=== PATIENT | female | born 1955 | race African-American/Black ===

== ENCOUNTER 2017-03-06 03:07 | Inpatient (IN) | payer MEDICAID, OTHER ==
[2017-03-06 05:08] LABS: ADD MAN DIFF? NO
[2017-03-06 05:10] LABS: BASOPHILS % 0.6 % (0.0-2.0); EOSINOPHILS # 0.1 10^3/ul (0.0-0.5); EOSINOPHILS % 1.9 % (0.0-7.0); HEMATOCRIT 40.1 % (37.0-47.0); HEMOGLOBIN 13.4 g/dl (12.0-16.0); LYMPHOCYTES # 3.2 10^3/ul (0.8-2.9); MEAN CORPUSCULAR HEMOGLOBIN 30.2 pg (29.0-33.0); MEAN CORPUSCULAR HGB CONC 33.4 g/dl (32.0-37.0); MEAN CORPUSCULAR VOLUME 90.5 fl (82.0-101.0); MEAN PLATELET VOLUME 12.1 fl (7.4-10.4); MONOCYTE # 0.9 10^3/ul (0.3-0.9); MONOCYTES % 12.7 % (0.0-11.0); NEUTROPHIL # 2.5 10^3/ul (1.6-7.5); NEUTROPHILS % 37.5 % (39.0-77.0); PLATELET COUNT 165 10^3/UL (140-415); RED BLOOD COUNT 4.43 10^6/ul (4.20-5.40); RED CELL DISTRIBUTION WIDTH 13.9 % (11.5-14.5)
[2017-03-06 05:10] LABS: WHITE BLOOD COUNT 6.7 10^3/ul (4.8-10.8)
[2017-03-06] MEDS: ASPIRIN 325 MG TAB PO (05:15)
[2017-03-06] MEDS ORDERED: NITROGLYCERIN (SL) 0.4 MG TAB SL (06:30)
[2017-03-06 07:40] LABS: ANION GAP 16 (8-16); BLOOD UREA NITROGEN 10 mg/dl (7-20); CALCIUM 8.9 mg/dl (8.4-10.2); CARBON DIOXIDE 28 mmol/L (21-31); CHLORIDE 103 mmol/L (97-110); CREATININE 0.96 mg/dl (0.44-1.00); GLUCOSE 106 mg/dl (70-220); SODIUM 143 mmol/L (135-144)
[2017-03-06 07:53] LABS: B-TYPE NATRIURETIC PEPTIDE 25 PG/ML (0-125)
[2017-03-06 07:59] LABS: TROPONIN-I 0.147 ng/ml (0.00-0.12)
[2017-03-06] MEDS: NITROGLYCERIN 2% 1 GM OINT PKT TD (08:04)
[2017-03-06] MEDS: ONDANSETRON 4 MG INJ IV ×3 (08:12→16:03)
[2017-03-06] MEDS: morphine 4 MG/ML VIAL IV (08:32)
[2017-03-06 11:58] LABS: CREATINE KINASE 188 IU/L (23-200)
[2017-03-06 12:12] LABS: CK INDEX 0.4; CK-MB 0.68 ng/ml (0.0-2.4); TROPONIN-I 0.119 ng/ml (0.00-0.12)
[2017-03-06 12:31] LABS: ALANINE AMINOTRANSFERASE 43 IU/L (13-69); ALBUMIN 3.9 g/dl (3.3-4.9); ALKALINE PHOSPHATASE 69 IU/L (42-121); ASPARTATE AMINO TRANSFERASE 34 IU/L (15-46); BILIRUBIN,INDIRECT 0.3 mg/dl (0-1.1); BILIRUBIN,TOTAL 0.3 mg/dl (0.2-1.3); MAGNESIUM 1.9 mg/dl (1.7-2.5); TOTAL PROTEIN 7.7 g/dl (6.1-8.1)
[2017-03-06 12:31] LABS: PHOSPHORUS 4.2 mg/dl (2.5-4.9)
[2017-03-06 12:53] LABS: HEMOGLOBIN A1C 6.3 % (0-5.9)
[2017-03-06] MEDS ORDERED: METHOTREXATE 2.5 MG TAB PO (14:00)
[2017-03-06 14:04] LABS: ADD UMIC NO; UR ASCORBIC ACID NEGATIVE (NEGATIVE); UR BILIRUBIN (Dip) NEGATIVE (NEGATIVE); UR BLOOD (Dip) NEGATIVE (NEGATIVE); UR CLARITY CLEAR (CLEAR); UR COLOR YELLOW (YELLOW); UR GLUCOSE (Dip) NEGATIVE (NEGATIVE); UR KETONES (Dip) NEGATIVE (NEGATIVE); UR LEUKOCYTE ESTERASE (Dip) NEGATIVE Leu/ul (NEGATIVE); UR NITRITE (Dip) NEGATIVE (NEGATIVE); UR SPECIFIC GRAVITY (Dip) 1.014 (1.003-1.030); UR TOTAL PROTEIN (Dip) NEGATIVE (NEGATIVE); UR UROBILINOGEN (Dip) NEGATIVE (NEGATIVE)
[2017-03-06] MEDS: ACETAMINOPHEN 325 MG TAB PO ×2 (15:52→18:07)
[2017-03-06] MEDS ORDERED: hydrALAzine 20 MG INJ IV (17:30)
[2017-03-06] MEDS: METHOTREXATE 2.5 MG TAB PO (18:06)
[2017-03-06] MEDS: TRIAMTERENE/HCTZ (37.5-25) CAP PO (18:07)
[2017-03-06] MEDS: FOLIC ACID 1 MG TAB PO (18:07)
[2017-03-06 18:13] LABS: CREATINE KINASE 185 IU/L (23-200)
[2017-03-06 18:25] LABS: CK INDEX 0.4; CK-MB 0.71 ng/ml (0.0-2.4); TROPONIN-I 0.087 ng/ml (0.00-0.12)
[2017-03-06 18:44] LABS: THYROID STIMULATING HORMONE 0.744 MIU/L (0.465-4.680)
[2017-03-06] MEDS ORDERED: METOPROLOL 100 MG TAB PO (21:00)
[2017-03-06] MEDS: METOPROLOL 25 MG TAB PO (22:00)
[2017-03-06] MEDS: ATORVASTATIN 20 MG TAB PO (22:38)
[2017-03-06] MEDS: NIFEdipine (XL) 30 MG TAB PO (22:39)
[2017-03-07] MEDS: REGADENOSON 0.4 MG/5 ML SYG (11:55)
[2017-03-07] MEDS: NIFEdipine (XL) 30 MG TAB PO (12:59)
[2017-03-07] MEDS: FOLIC ACID 1 MG TAB PO (12:59)
[2017-03-07] MEDS: TRIAMTERENE/HCTZ (37.5-25) CAP PO (13:00)
[2017-03-07 16:15] LABS: CREATINE KINASE 208 IU/L (23-200)
[2017-03-07 16:28] LABS: CK INDEX 0.3; CK-MB 0.55 ng/ml (0.0-2.4)
== END 2017-03-07 21:05 | disposition home or self-care (01) | DRG 310 ==
LOC: E/R 03:07 → MS3 08:05
PROVIDERS: Family Medicine
PROC: C22G1ZZ Tomographic (Tomo) Nuclear Medicine Imaging of Myocardium using Technetium 99m (Tc-99m) (ICD-10-PCS; principal; 2017-03-07)
PROC: 4A02XM4 Measurement of Cardiac Total Activity, External Approach (ICD-10-PCS; 2017-03-07)
PROC: 3E033HZ Introduction of Radioactive Substance into Peripheral Vein, Percutaneous Approach (ICD-10-PCS; 2017-03-07)
DX: I49.5 Sick sinus syndrome (principal); I10 Essential (primary) hypertension; E78.5 Hyperlipidemia, unspecified; L40.9 Psoriasis, unspecified; E78.00 Pure hypercholesterolemia, unspecified; R73.03 Prediabetes
CPT/HCPCS: 36415; 71045; 78452; 80048; 80076; 81003; 82550; 82553; 83036; 83735; 83880; 84100; 84443; 84484; 85025; 93005; 93017; 93306; 96374; 96375; 96376; 99291-25